=== PATIENT | female | born 1985 | race Caucasian/White ===

== ENCOUNTER 2018-04-14 22:54 | Emergency (ER) | payer OTHER ==
[~2018-04-14] VITALS: Ht 152.4 cm; Wt 85.3 kg
[~2018-04-14 22:54] MED LIST: AMOXICILLIN875 MG PO; AZITHROMYCIN250 M1 PO; CETIRIZINE HYDR10 MG PO; LIDOCAINE VISC100 M1; MOTRIN800 MG PO; VENTOLIN H0.09 MG/A1 INH
[2018-04-14 23:02] VITALS: BP 124/81; Ht 152.4 cm; Wt 85.3 kg
== END 2018-04-15 00:35 | disposition left against medical advice (07) ==
LOC: ED 22:54
DX: Z53.21 Procedure and treatment not carried out due to patient leaving prior to being seen by health care provider (principal)

== ENCOUNTER 2019-12-04 16:25 | Emergency (ER) | payer OTHER ==
[~2019-12-04] VITALS: Ht 152.4 cm; Wt 88.5 kg
[2019-12-04 16:42] VITALS: Ht 152.4 cm; Wt 88.5 kg
[2019-12-04 17:20] LABS: BASOPHIL % 0.3 % (0-2); PLATELET COUNT 325 x10^3mcL (130-400)
[2019-12-04 17:24] LABS: RED CELL DISTRIBUTION WIDTH 14.8 % (11.5-14.5)
[2019-12-04 17:36] LABS: CALCIUM 8.6 mg/dL (8.5-10.1); CARBON DIOXIDE 25.6 mmol/L (21-32); CHLORIDE SERUM 104 mmol/L (98-107); CREATININE SERUM 0.7 mg/dL (0.6-1.0); GFR1 > 60 mL/min; GLUCOSE SERUM 111 mg/dL (74-106); POTASSIUM SERUM 3.5 mmol/L (3.5-5.1); SODIUM SERUM 139 mmol/L (136-145)
[2019-12-04 17:41] LABS: ALBUMIN 3.5 g/dL (3.4-5.0); ALKALINE PHOSPHATASE 75 U/L (46-116); ALT/SGPT 24 U/L (14-59); AST/SGOT 10 U/L (15-37); BILIRUBIN TOTAL 0.1 mg/dL (0.20-1.00); TOTAL PROTEIN, SERUM 7.5 g/dL (6.4-8.2)
[2019-12-04 18:29] LABS: microscopic required? NO
[2019-12-04 18:35] LABS: UA SPECIFIC GRAVITY <=1.005 (1.005-1.035); urine erythrocyte NEGATIVE (NEGATIVE)
[2019-12-04 20:43] VITALS: BP 101/62
== END 2019-12-04 20:43 | disposition home or self-care (01) ==
LOC: ED 16:25
PROVIDERS: Emergency Medicine
DX: O34.11 Maternal care for benign tumor of corpus uteri, first trimester (principal); R10.30 Lower abdominal pain, unspecified; J45.909 Unspecified asthma, uncomplicated; Z3A.01 Less than 8 weeks gestation of pregnancy
CPT/HCPCS: 36415